=== PATIENT | female | born 1970 | race African-American/Black ===

== ENCOUNTER 2020-01-11 07:14 | Emergency (ER) | payer OTHER ==
[2020-01-11] MEDS ORDERED: KETOROLAC TROMETHAMINE INJ 60 MG/2 ML VIAL IM ONE (07:31)
--- NOTE | 2020-01-11 07:36 | ED.PDOC ---
History of Present Illness - General Time Seen by Provider: 01/11/20 07:21 Source: patient - History of Present Illness Initial Comments: 49-year-old female with past medical history of hypertension and asthma who presents with chief complaint of left-sided neck pain and other injuries following ground-level fall at work just prior to arrival. She states that she was working at [employer] when she stepped backwards and tripped falling backwards onto her left side against a table. She states that the left side of her neck, her left upper arm, her lower back, and her left leg of a table in the ground during her fall. Since the fall she reports 12/10 severity pain mostly to the left lateral neck which radiates into the left upper arm, unable to describe "just hurts", constant, worse with movement of the neck and any movement of the left arm, she took Tylenol 650 mg p.o. just prior to arrival with little reported relief. She also reports moderate severity pain to the lower back and the left upper leg just above the knee. She has been able to walk with moderate amount of pain. Denies any weakness or numbness. Denies any deformity. Denies any chronic history of neck or back pain from previous surgeries or fractures. Denies any midline neck pain or headache. No LOC reported. Denies any other systemic symptoms. Allergies/Adverse Reactions: Allergies Milk-related Compounds Allergy (Verified 01/11/20 07:49) Penicillins Allergy (Verified 01/11/20 07:49) Home Medications: Ambulatory Orders Acetaminophen W/ Codeine [Tylenol W/ CODEINE #3] 1 ea PO Q6H PRN 7 Days #12 ea 01/11/20 Cyclobenzaprine HCl [Flexeril] 10 mg PO Q8H PRN 30 Days #30 tab 01/11/20 Review of Systems - Review of Systems Review of Systems: 01/11/20 07:35 as per HPI All other Systems: Reviewed and Negative Family Medical History - Family History Mother Family History: Unknown Physical Exam - Physical Exam General Appearance: Alert, No apparent distress Eye Exam: bilateral normal Ears, Nose, Throat: hearing grossly normal, normal ENT inspection Neck: supple, normal inspection, limited range of motion, other - No midline tenderness to palpation or step-offs. There is moderate tenderness to palpation of the left lateral cervical musculature. Respiratory: chest non-tender, lungs clear, normal breath sounds, no respiratory distress, no accessory muscle use Cardiovascular/Chest: normal peripheral pulses, regular rate, rhythm, no edema, no gallop, no murmur Peripheral Pulses: radial,right: 2+, radial,left: 2+ Gastrointestinal/Abdominal: non tender, soft, no organomegaly Back Exam: normal inspection, other - Back appears normal on inspection. There is some moderate tenderness to palpation of the lower lumbar spine in the midline without any noted step-offs. Range of motion is moderately limited in the lumbar spine due to pain. Extremity: normal inspection, other - Appears normal on inspection without bruising, swelling, deformity. 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 Consider also cervical spine fracture but appears highly unlikely. Nexus criteria are all negative. Consider also left shoulder fracture, lumbar vertebral compression fracture, lumbar paraspinal muscle spasm/strain, left leg fracture, pelvic fracture, contusion injuries appear most likely. -Patient placed in the hard cervical collar as precautionary measure. Will obtain x-ray images of the cervical spine. Also obtain x-ray images of the left shoulder, lumbar spine, pelvis, left femur. Toradol 60 mg IM for pain. Cold compresses. 01/11/20 09:04 -All x-ray imaging reviewed and negative for any acute fractures or processes. Patient reports some moderate relief in pain but still rates as 8/10 in severity. C-collar was cleared by me at bedside. Will give Flexeril 10 mg p.o. and hydrocodone 10 mg p.o. in the ED. Plan to discharge home with Tylenol 3 as needed prescription and Flexeril as needed prescription with close outpatient follow-up. Work note given as well. Alexei Alcocer MD Billing #[id number] Departure - Departure Clinical Impression: Strain of neck muscle Qualifiers: Encounter type: initial encounter Qualified Code(s): S16.1XXA - Strain of muscle, fascia and tendon at neck level, initial encounter Contusion of leg, left Qualifiers: Encounter type: initial encounter Qualified Code(s): S80.12XA - Contusion of left lower leg, initial encounter Contusion of left arm Qualifiers: Encounter type: initial encounter Qualified Code(s): S40.022A - Contusion of left upper arm, initial encounter Time of Disposition: 09:00 Disposition: Discharge to Home or Self Care Condition: Good Departure Forms: ED Discharge - Work Release Instructions: Cervical Muscle Strain (DC), Contusion (DC) Diet: resume usual diet Activity: increase activity as tolerated Prescriptions: Cyclobenzaprine HCl [Flexeril] 10 mg PO Q8H PRN 30 Days #30 tab PRN Reason: Muscle Spasms Acetaminophen W/ Codeine [Tylenol W/ CODEINE #3] 1 ea PO Q6H PRN 7 Days #12 ea PRN Reason: Pain Home Medications: Ambulatory Orders Acetaminophen W/ Codeine [Tylenol W/ CODEINE #3] 1 ea PO Q6H PRN 7 Days #12 ea 01/11/20 Cyclobenzaprine HCl [Flexeril] 10 mg PO Q8H PRN 30 Days #30 tab 01/11/20 Additional Instructions: Continue applying cold compresses to the affected areas for 15 to 20 minutes every 1-2 hours for the next 2 to 3 days to help limit pain and swelling. You may also take [id number] anti-inflammatories to help with pain and inflammation such as ibuprofen 600 mg every 6 hours as needed and Tylenol 650 mg every 6 hours as needed. You may take the Tylenol 3 as directed for breakthrough pain and Flexeril as needed for muscle spasms. Do not drive or operate heavy machinery when taking this medication as it may make you drowsy. Follow-up is recommended with your primary care physician in the next 5 to 7 days for repeat evaluation or sooner as needed.
[2020-01-11 07:47] VITALS: TEMP 98.2
--- NOTE | 2020-01-11 08:25 | RAD ---
EXAM DESCRIPTION: Cervical Spine, 2-3 Views CLINICAL HISTORY: 49 years Female, GLF, Left lateral neck and shoulder pain COMPARISON: None. FINDINGS: Two views of the cervical spine were obtained. The lower cervical spine and cervicothoracic junction are suboptimally visualized on the lateral view, no fracture or subluxation is identified. Disc space narrowing is suspected at several levels in the mid cervical spine. Facet and uncovertebral joint hypertrophy also at several levels but worse at C5-6. IMPRESSION: Moderate multilevel degenerative changes without acute bony. Limited visualization of the lower cervical spine as detailed above. Electronically signed by: Stefano Petersen MD 01/11/2020 8:23 AM CDT
--- NOTE | 2020-01-11 08:26 | RAD ---
EXAM DESCRIPTION: Femur,Left CLINICAL HISTORY: 49 years Female, GLF, Left upper leg pain COMPARISON: None. FINDINGS: Four views of the left femur show no acute fracture or malalignment. No focal bone lesion or periostitis. No radiopaque body or soft tissue gas. IMPRESSION: Negative exam. Electronically signed by: Stefano Petersen MD 01/11/2020 8:24 AM CDT
--- NOTE | 2020-01-11 08:27 | RAD ---
EXAM DESCRIPTION: Lumbar Spine 3 Views CLINICAL HISTORY: 49 years Female, GLF, low back pain COMPARISON: None. FINDINGS: Three views of the lumbar spine show no vertebral body fracture or subluxation. Tiny marginal osteophytes at a few levels. The spinous and transverse processes are intact. Bilateral tubal ligation clips. The sacrum and sacroiliac joints are unremarkable. IMPRESSION: Mild degenerative changes, otherwise unremarkable exam. Electronically signed by: Stefano Petersen MD 01/11/2020 8:25 AM CDT
--- NOTE | 2020-01-11 08:30 | RAD ---
EXAM DESCRIPTION: Pelvis CLINICAL HISTORY: 49 years Female, GLF, Left upper leg pain COMPARISON: None. FINDINGS: Single AP view of the pelvis shows no acute fracture or malalignment. The hip and sacroiliac joint spaces are well-maintained. Tubal ligation clips. Additional surgical clips project over the right hip region. IMPRESSION: Postoperative changes, otherwise unremarkable exam. Electronically signed by: Stefano Petersen MD 01/11/2020 8:28 AM CDT
--- NOTE | 2020-01-11 08:30 | RAD ---
EXAM DESCRIPTION: Shoulder,Left 2 or More Views CLINICAL HISTORY: 49 years Female, GLF, Left lateral neck and shoulder pain COMPARISON: None. FINDINGS: Two views of the left shoulder show no acute fracture or malalignment. The left AC joint is unremarkable. No soft tissue abnormality. IMPRESSION: Negative exam. Electronically signed by: Stefano Petersen MD 01/11/2020 8:28 AM CDT
[2020-01-11] MEDS ORDERED: HYDROcodone 10MG/APAP 325MG 1 EA TAB PO ONE (08:58)
[2020-01-11] MEDS ORDERED: CYCLOBENZAPRINE HCL 10 MG TAB PO ONE (08:58)
[2020-01-11 09:57] VITALS: BP 169/97; O2SAT 953
== END 2020-01-11 09:59 | disposition home or self-care (01) ==
LOC: ER 07:14
DX: S16.1XXA Strain of muscle, fascia and tendon at neck level, initial encounter (principal); S80.12XA Contusion of left lower leg, initial encounter; S40.022A Contusion of left upper arm, initial encounter; M54.5 Low back pain; I10 Essential (primary) hypertension; J45.909 Unspecified asthma, uncomplicated; W01.190A Fall on same level from slipping, tripping and stumbling with subsequent striking against furniture, initial encounter; Y99.0 Civilian activity done for income or pay; Y92.512 Supermarket, store or market as the place of occurrence of the external cause; Z88.0 Allergy status to penicillin
CPT/HCPCS: 72040; 72100; 72170; 73030; 73551; J1885